=== PATIENT | male | born 1940 | race Caucasian/White ===

== ENCOUNTER 2021-01-09 13:39 | Inpatient (IN) | payer MEDICARE ==
[~2021-01-09] VITALS: Ht 162.6 cm; Wt 65.8 kg
[2021-01-09 13:46] VITALS: BP 144/74
[2021-01-09] MEDS ORDERED: LIPITOR80 MG PO (13:48)
[2021-01-09] MEDS ORDERED: PERCOCET 5-3251 EACH PO (13:48)
[2021-01-09] MEDS ORDERED: PROSCAR 5MG TABL5 M1 PO (13:48)
[2021-01-09] MEDS ORDERED: OXYBUTYNIN 5 MG5 M2 PO (13:48)
[2021-01-09] MEDS ORDERED: FLOMAX0.4 MG PO (13:49)
[2021-01-09 15:49] LABS: ABSOLUTE BASOPHILS 0.1 thou/uL (0.0-0.2); ABSOLUTE EOSINOPHILS 0.1 thou/uL (0.0-0.7); ABSOLUTE LYMPHOCYTES 1.1 thou/uL (0.8-5.3); ABSOLUTE MONOCYTES 0.5 thou/uL (0.0-1.2); ABSOLUTE NEUTROPHILS 8.5 thou/uL (1.6-8.1); BASOPHILS 0.5 %; HEMATOCRIT 41.2 % (42.0-52.0); HEMOGLOBIN 14.3 gm/dL (14.0-18.0); LYMPHOCYTES 11.2 %; MCH 32.1 pg (26.0-34.0); MCHC 34.8 g/dL (28.0-37.0); MCV 92.2 fL (80.0-100.0); MONOCYTES 4.6 %; MPV 7.8 fl. (7.2-11.1); NUCLEATED RBCS 0 /100WBC; PLATELET COUNT* 207 thou/uL (150-400); POLYS 82.7 %; RBC 4.47 mil/uL (4.50-6.00); RDW-CV 12.9 % (10.5-14.5); WBC 10.3 thou/uL (4.0-11.0)
[2021-01-09] MEDS ORDERED: OXYCODONE HCL 55 MG PO (15:56)
[2021-01-09] MEDS ORDERED: OXYCONTIN15 MG PO (15:56)
[2021-01-09 16:00] LABS: ALBUMIN 3.7 g/dL (3.4-5.0); CALCIUM 8.9 mg/dL (8.5-10.1); CREATININE 0.7 mg/dL (0.6-1.3); POTASSIUM 4.3 mmol/L (3.5-5.1); TOTAL BILIRUBIN 0.3 mg/dL (<0.1-1.0); TOTAL PROTEIN 6.8 g/dL (6.4-8.2)
[2021-01-09 16:25] VITALS: BP 152/57
[2021-01-09 16:49] VITALS: BP 137/57
[2021-01-09 20:00] VITALS: BP 146/57
[2021-01-10 07:25] VITALS: BP 100/53
[2021-01-10 16:10] VITALS: BP 117/74
[2021-01-10 20:00] VITALS: BP 155/68
[2021-01-11 07:52] VITALS: BP 146/71
[2021-01-11 10:50] VITALS: BP 146/71
[2021-01-11 11:25] VITALS: BP 146/71
== END 2021-01-11 11:58 | disposition home or self-care (01) | DRG 563 ==
LOC: M.ERS 13:39 → M.TBA-ER 15:11 → M.ORTHSURG 15:11
PROVIDERS: Emergency Medicine; ADMIT Internal Medicine; ATTEND Internal Medicine
PROC: 2W38X1Z Immobilization of Right Upper Extremity using Splint (ICD-10-PCS; principal; 2021-01-09)
DX: S42.401A Unspecified fracture of lower end of right humerus, initial encounter for closed fracture (principal); M75.121 Complete rotator cuff tear or rupture of right shoulder, not specified as traumatic; M48.00 Spinal stenosis, site unspecified; Z20.822 Contact with and (suspected) exposure to COVID-19; K21.9 Gastro-esophageal reflux disease without esophagitis; W18.30XA Fall on same level, unspecified, initial encounter; Y93.89 Activity, other specified; Y92.89 Other specified places as the place of occurrence of the external cause; Y99.8 Other external cause status; Z95.5 Presence of coronary angioplasty implant and graft; Z98.52 Vasectomy status; Z85.51 Personal history of malignant neoplasm of bladder